=== PATIENT | female | born 1970 | race Caucasian/White ===

== ENCOUNTER → 2020-06-20 | Outpatient (CLI) | payer BC ==
--- NOTE | 2020-06-20 23:14 | MR ---
EXAMINATION TYPE: MR shoulder RT wo con DATE OF EXAM: 06/20/2020 COMPARISON: None HISTORY: Right shoulder pain for 6 months. Multiplanar multiecho imaging of the right shoulder was performed without contrast. There is some thickening and increased signal in the supraspinatus tendon full-thickness tear. There is no retraction. The AC joint is intact. There is no subacromial impingement. The glenoid ray appe ar intact. Biceps tendon is intact. There is a small shoulder joint effusion. There is no evidence of a fracture. The subscapularis tendon is intact. IMPRESSION: Mild shoulder joint effusion. Full-thickness tear of the supraspinatus tendon without any retraction. Mild subdeltoid effusion.
== END | disposition home or self-care (01) ==
LOC: RADMRIMAIN 19:58
PROVIDERS: ATTEND Orthopaedic Surgery
DX: M75.121 Complete rotator cuff tear or rupture of right shoulder, not specified as traumatic (principal); M25.411 Effusion, right shoulder

== ENCOUNTER → 2020-08-02 | Outpatient (CLI) | payer BC ==
[2020-08-02 08:56] LABS: Basophils % (A) 0 %; Eosinophils # (A) 0.1 k/uL (0-0.7); Eosinophils % (A) 2 %; HCT 41.3 % (34.0-46.0); HGB 14.1 gm/dL (11.4-16.0); Lymphocytes # (A) 2.4 k/uL (1.0-4.8); Lymphocytes % (A) 29 %; MCH 30.7 pg (25.0-35.0); MCHC 34.2 g/dL (31.0-37.0); MCV 89.6 fL (80.0-100.0); Mean Platelet Volume 7.8; Monocytes # (A) 0.4 k/uL (0-1.0); Monocytes % (A) 4 %; Neutrophils # (A) 5.1 k/uL (1.3-7.7); Neutrophils % (A) 61 %; Platelet Count 247 k/uL (150-450); RBC 4.61 m/uL (3.80-5.40); RDW 12.3 % (11.5-15.5); WBC 8.3 k/uL (3.8-10.6)
[2020-08-02 09:11] LABS: Potassium 4.2 mmol/L (3.5-5.1)
== END | disposition home or self-care (01) ==
LOC: LABPAT 07:56
PROVIDERS: ATTEND Orthopaedic Surgery
DX: Z01.818 Encounter for other preprocedural examination (principal); M75.41 Impingement syndrome of right shoulder
CPT/HCPCS: 36415; 80051; 85025; 93005

== ENCOUNTER → 2021-01-16 | Outpatient (CLI) | payer BC ==
--- NOTE | 2021-01-16 14:15 | MM ---
Reason for exam: screening (asymptomatic). Last mammogram was performed 1 year and 2 months ago. History: Family history of breast cancer in maternal grandmother. Benign excisional biopsy of the right breast, 2019. Taking hormonal contraceptives for 5 years. Physical Findings: A clinical breast exam by your physician is recommended on an annual basis and results should be correlated with mammographic findings. MG 3D Screening Mammo W/Cad Bilateral CC, MLO, and XCCL view(s) were taken. Prior study comparison: November 28, 2019, mammogram, performed at [facility]. September 09, 2017, mammogram, performed at [facility]. The breast tissue is extremely dense which could obscure a lesion on mammography. Finding: There is stable architectural distortion in the right breast. Previous mammotome biopsy in the right breast x 2. There is a chronic nodularity in the right breast, stable or decreased in size. There is no new dominant lesion. Asymmetric breast tissue left axilla, stable. ASSESSMENT: Benign, BI-RAD 2 RECOMMENDATION: Routine screening mammogram of both breasts in 1 year.
== END | disposition home or self-care (01) ==
LOC: RADMAMWWP 08:27
PROVIDERS: ATTEND Obstetrics & Gynecology
DX: Z12.31 Encounter for screening mammogram for malignant neoplasm of breast (principal); Z80.3 Family history of malignant neoplasm of breast
CPT/HCPCS: 77063; 77067

== ENCOUNTER → 2021-02-14 | Outpatient (CLI) | payer BC ==
[2021-02-14 09:34] LABS: Potassium 4.2 mmol/L (3.5-5.1)
[2021-02-14 09:58] LABS: Basophils % (A) 1 %; Eosinophils # (A) 0.1 k/uL (0-0.7); Eosinophils % (A) 2 %; HGB 13.1 gm/dL (11.4-16.0); Lymphocytes # (A) 2.1 k/uL (1.0-4.8); Lymphocytes % (A) 32 %; MCH 30.5 pg (25.0-35.0); MCHC 33.6 g/dL (31.0-37.0); MCV 90.7 fL (80.0-100.0); Mean Platelet Volume 8.7; Monocytes # (A) 0.4 k/uL (0-1.0); Monocytes % (A) 6 %; Neutrophils # (A) 3.8 k/uL (1.3-7.7); Neutrophils % (A) 56 %; Platelet Count 254 k/uL (150-450); RBC 4.29 m/uL (3.80-5.40); RDW 12.2 % (11.5-15.5); WBC 6.8 k/uL (3.8-10.6)
== END | disposition home or self-care (01) ==
LOC: LABPAT 08:17
PROVIDERS: ATTEND Orthopaedic Surgery
DX: Z01.812 Encounter for preprocedural laboratory examination (principal); M75.41 Impingement syndrome of right shoulder
CPT/HCPCS: 80051; 85025

== ENCOUNTER 2021-02-27 07:44 | Day surgery (SDC) | payer BC ==
[2021-02-26 10:29] VITALS: BMI 23.6
--- NOTE | 2021-02-26 20:33 | HP ---
HISTORY AND PHYSICAL DATE OF SURGERY: 02/27/2021 Annalise Cevallos is a 51-year-old patient seen with progressive right shoulder pain. We discussed options for treatment. The patient elected to proceed with right shoulder arthroscopy. Consent obtained. PAST MEDICAL HISTORY: Noncontributory. PAST SURGICAL HISTORY: Noncontributory. MEDICATIONS: Ibuprofen. ALLERGIES: None. SOCIAL HISTORY: The patient denies tobacco use. PHYSICAL EVALUATION RIGHT SHOULDER: Flexion 130 degrees, abduction is 110 degrees, external rotation is 30 degrees with pain and weakness. There is tenderness along the anterior lateral acromion and rotator cuff insertion site. Impingement is positive at 90 degrees. Cross-body adduction sign is positive. Drop-arm sign is positive. Distal neurovascular exam is intact. Right shoulder radiographs revealed a type 2 acromion, evidence for cystic changes of the tuberosity. MRI right shoulder revealed rotator cuff tendon tear. IMPRESSION: Right shoulder impingement with rotator cuff tear. PLAN: Right shoulder arthroscopy with subacromial decompression, arthroscopic rotator cuff repair and debridement. MMODL / IJN: [id number] /
[~2021-02-27 07:44] MED LIST: DEXAMETHASONE SOD PHOSPHATE 4 MG/ML 1 ML VIAL IV ONE; HYDROmorphone 0.5 MG/0.5 ML SYRINGE IVP PRN; LACTATED RINGERS 1,000 ML IV SCH; LIDOCAINE 1% (10MG/ML) FOR IV START INTRADERMA PRN; MIDAZOLAM 2 MG/2 ML VIAL IV PRN; ONDANSETRON 4 MG/2 ML VIAL IVP ONE; SCOPOLAMINE 1.5MG/72HR PATCH TRANSDERM ONE; fentaNYL (PF) 50 MCG/ML 2 ML AMP IVP PRN
[2021-02-27] MEDS ORDERED: MIDAZOLAM 2 MG/2 ML VIAL IVP ONE ×2 (09:02→09:05)
[2021-02-27] MEDS ORDERED: fentaNYL (PF) 50 MCG/ML 2 ML AMP IVP ONE (09:02)
--- NOTE | 2021-02-27 09:16 | P.ANPRN ---
Procedure Note - Anesthesia - Nerve Block Performed Right Interscalene Single Time Out Performed: Yes ([id number]) Date of Procedure: 02/27/21 Procedure Start Time: :08 Procedure Stop Time: :12 Location of Patient: PreOp Indication: Acute Post-Operative Pain, Requested by Surgeon Specifically requested for management of pain by DrRosas: Clement Burger Sedation Type: Sedate with meaningful contact maintained Preparation: Sterile Prep Position: Supine Catheter: None Needle Types: Pajunk Needle Gauge: 21 Ultrasound used to visualize needle placement: Yes Ultrasound used to observe medication spread: Yes Injectate: 0.5% Ropivacaine (see comment for volume) (25cc) Blood Aspirated: No Pain Paresthesia on Injection Noted: No Resistance on Injection: Normal Image Stored and Saved: Yes Events: Uneventful and Well Tolerated
[2021-02-27] MEDS ORDERED: ROPIVACAINE 5 MG/ML 30 ML VIAL ONE (09:36)
[2021-02-27] MEDS ORDERED: PROPOFOL 10 MG/ML 20 ML VIAL IV ONE (09:36)
[2021-02-27] MEDS ORDERED: LIDOCAINE 1% INJ 10MG/ML (20 ML MDV) ONE (09:36)
[2021-02-27] MEDS ORDERED: fentaNYL (PF) 50 MCG/ML 2 ML AMP ONE (09:36)
[2021-02-27] MEDS ORDERED: SUCCINYLCHOLINE CHLORIDE 100 MG/5 ML SYR IV ONE (09:36)
[2021-02-27] MEDS ORDERED: PHENYLEPHRINE-0.9% NACL SYG 1,000 MCG/10 ML SYRINGE ONE (09:36)
[2021-02-27] MEDS ORDERED: MIDAZOLAM 2 MG/2 ML VIAL ONE (09:36)
[2021-02-27] MEDS ORDERED: LACTATED RINGERS 1,000 ML IV ONE (10:18)
[2021-02-27 11:03] VITALS: TEMP 96.9
--- NOTE | 2021-02-27 11:03 | P.OP ---
Date of Procedure: 02/27/21 Preoperative Diagnosis: Right shoulder impingement Postoperative Diagnosis: 1. Right shoulder rotator cuff tear 2. Right shoulder impingement Procedure(s) Performed: 1. Right shoulder arthroscopic rotator cuff repair 2. Right shoulder arthroscopic subacromial decompression Implants: 14.75 Arthrex swivel lock anchor Anesthesia: GETA, regional (Interscalene block) Surgeon: Clement Burger Belt Glass Sander #1: Robert Fofana Estimated Blood Loss (ml): 8 Pathology: none sent Condition: stable Disposition: PACU Indications for Procedure: 51-year-old patient seen with progressive right shoulder pain. After treatment options were discussed, she elected to proceed with arthroscopy. Operative Findings: see description of procedure Description of Procedure: Patient underwent an interscalene block by department of anesthesia. The patient was then taken to the operative suite. The patient underwent a general anesthetic by the department of anesthesia. The patient was placed into a lateral position and secured. There was appropriate padding of the bony prominence. Right shoulder was then prepped and draped in normal sterile orthopedic fashion. We placed the extremity in 10 pounds of longitudinal traction. A posterior incision was now made for a posterior working portal site. The trocar and cannula were inserted into the glenohumeral joint. Arthroscopy was initiated. Spinal needle was now inserted anteriorly, to ascertain the anterior working portal site. An incision was now made in that area, a trocar was inserted followed by a probe. The labrum was probed and found to be stable. There was no chondromalacia present. The biceps was stable. At this point instruments removed from glenohumeral joint. Utilizing the posterior working portal site, the trocar and cannula were inserted into the subacromial space. Arthroscopy initiated. I made an incision 2 fingerbreadths lateral to the acromion. I introduced my trocar followed by my ArthroCare ablator. I now began ablating thick subacromial bursal tissue, which exposed the undersurface of the anterior acromion. There was diminished subacromial space. There was a very prominent anterior acromion. A motorized bur was introduced and a subacromial decompression was performed. I also excised some osteophytes off the inferior aspect of the distal clavicle. The AC joint was visualized and noted to have some mild/moderate osteoarthritis, not enough toward a Daniele procedure. I now turned my attention to the rotator cuff tendon. There was a 1.5 cm tear along the distal supraspinatus. I debrided the margins getting down to stable tendon tissue. It was freely mobile over the footprint. I abraded the footprint with a motorized bur. I passed 3 everted mattress sutures through good bites of rotator cuff tendon. I punched hole in the footprint area for insertion of an anchor. I passed all 6 limbs of suture through the eyelet of a 4.75 swivel lock anchor. I placed the eyelet into the pre-punch hole. I held it in position while Jc SANCHEZ tensioned all suture limbs and deployed the anchor with good fixation noted. All residual suture limbs were now clipped. We had good compression of the tendon along the entire footprint. Instruments now removed from the portal sites. All portal sites were approximated with nylon suture. Sterile dressings were applied [facility]. Robert SANCHEZ assisted in this case. The patient was awakened, transferred to a bed, and taken to recovery in stable condition.
[2021-02-27] MEDS ORDERED: ONDANSETRON 4 MG/2 ML VIAL ONE (11:14)
[2021-02-27] MEDS ORDERED: ONDANSETRON 4 MG/2 ML VIAL IVP ONE (11:17)
[2021-02-27 11:18] VITALS: RESP 16
[2021-02-27 12:26] VITALS: BP 156/83; PULSE 58
== END 2021-02-27 13:00 | disposition home or self-care (01) ==
LOC: OR 07:44
PROVIDERS: ATTEND Orthopaedic Surgery
DX: M75.101 Unspecified rotator cuff tear or rupture of right shoulder, not specified as traumatic (principal); M25.811 Other specified joint disorders, right shoulder; K21.9 Gastro-esophageal reflux disease without esophagitis; Z79.3 Long term (current) use of hormonal contraceptives; Z79.1 Long term (current) use of non-steroidal anti-inflammatories (NSAID); Z88.8 Allergy status to other drugs, medicaments and biological substances
CPT/HCPCS: 64415; 81025; 76942; 29826; 29827; C1713; J2250; J1100; J2405; J0690; J2001; J3010; J2795; J2370; J0330; J2704

== ENCOUNTER → 2021-11-05 | Outpatient (CLI) | payer BC ==
--- NOTE | 2021-11-05 09:11 | CT ---
EXAMINATION TYPE: CT soft tissue neck wo con DATE OF EXAM: 11/05/2021 COMPARISON: None HISTORY: Enlarged lymph node palpable on RT side of neck x1year CT DLP: 316.[address] of the neck was performed from the skull base through the lung apices. The lack of cont rast does limit evaluation. AIRWAY: The supraglottic, glottic, and subglottic portions of the airway appear patent and free of mass. SALIVARY GLANDS: The submandibular and parotid glands are free of mass or inflammatory process. THYROID GLAND: No nodules or masses seen. LYMPH NODES: Right-sided BB marker corresponds to 6 mm short axis lymph node right internal jugular c vasu. Subcentimeter lymph nodes are also seen within the left internal jugular chain. No adenopathy g reater than 1 cm visualized. LUNG APICES: No nodule or mass is seen. OTHER: Vascular structures are patent. No significant degenerative change of the cervical spine. N o abscess seen. IMPRESSION: Right-sided BB marker corresponds to 6 mm short axis lymph node right internal jugular chain. Subcent imeter lymph nodes are also seen within the left internal jugular chain. No adenopathy greater than 1 cm visualized.
== END | disposition home or self-care (01) ==
LOC: RADCTMAIN 08:22
PROVIDERS: ATTEND Family Medicine
DX: R59.0 Localized enlarged lymph nodes (principal)
CPT/HCPCS: 70490

== ENCOUNTER → 2022-01-17 | Outpatient (CLI) | payer BC ==
--- NOTE | 2022-01-20 16:05 | MM ---
Reason for Exam: Screening (asymptomatic). Last screening mammogram was performed 12 month(s) ago. Patient History: Menarche at age 14. First Full-Term at age 18. Currently using Hormonal Contraceptives, for 5 years. 2019, Benign Excisional Biopsy on the right side. Maternal grandmother had breast cancer. Last menstrual period: 01/06/2022 Risk Values: Shirley 5 year model risk: 0.8%. NCI Lifetime model risk: 6.8%. Prior Study Comparison: 09/09/2017 Screening Mammogram, [facility]. 11/28/2019 Screening Mammogram, [facility]. 01/16/2021 Bilateral Screening Mammogram, [facility]. Tissue Density: The breast tissue is heterogeneously dense. This may lower the sensitivity of mammography. Findings: Analyzed By CAD. Pattern appears symmetrical and stable. No significant interval change is evident. Core markers are within the right breast. No suspicious groups of microcalcifications, spiculated or lobular masses, architectural distortion or other secondary signs of malignancy are mammographically apparent. Overall Assessment: Benign, BI-RAD 2 Management: Screening Mammogram of both breasts in 1 year. A negative mammogram report should not preclude additional follow up of suspicious palpable abnormalities. Patient should continue monthly self breast exam. A clinical breast exam by your physician is recommended on an annual basis and results should be correlated with mammographic findings. Electronically signed and approved by: Andrew Khan D.O. Radiologis
== END | disposition home or self-care (01) ==
LOC: RADMAMWWP 07:30
PROVIDERS: ATTEND Obstetrics & Gynecology
DX: Z12.31 Encounter for screening mammogram for malignant neoplasm of breast (principal); Z80.3 Family history of malignant neoplasm of breast; Z98.890 Other specified postprocedural states
CPT/HCPCS: 77063; 77067

== ENCOUNTER → 2023-01-20 | Outpatient (CLI) | payer BC ==
--- NOTE | 2023-01-21 18:18 | MM ---
Reason for Exam: Screening (asymptomatic). Last screening mammogram was performed 12 month(s) ago. Patient History: Menarche at age 14. First Full-Term at age 18. Patient used Hormonal Contraceptives for 5 years. 2019, Benign Excisional Biopsy on the right side. Maternal grandmother had breast cancer. Last menstrual period: 01/13/2023 Risk Values: Shirley 5 year model risk: 0.8%. NCI Lifetime model risk: 6.7%. Prior Study Comparison: 11/28/2019 Screening Mammogram, [facility]. 01/16/2021 Bilateral Screening Mammogram, [facility]. 01/17/2022 Bilateral MG 3D screening mammo w/cad, [facility]. Tissue Density: The breast tissue is extremely dense which could obscure a lesion on mammography. Findings: Analyzed By CAD. Pattern appears symmetrical and stable. No significant interval change is evident. Core markers are within the right breast. No suspicious groups of microcalcifications, spiculated or lobular masses, architectural distortion or other secondary signs of malignancy are mammographically apparent. Overall Assessment: Negative, BI-RAD 1 Management: Screening Mammogram of both breasts in 1 year. A negative mammogram report should not preclude additional follow up of suspicious palpable abnormalities. Patient should continue monthly self breast exam. A clinical breast exam by your physician is recommended on an annual basis and results should be correlated with mammographic findings. Electronically signed and approved by: Andrew Khan D.O. Radiologis
== END | disposition home or self-care (01) ==
LOC: RADMAMWWP 07:48
PROVIDERS: ATTEND Obstetrics & Gynecology
DX: Z12.31 Encounter for screening mammogram for malignant neoplasm of breast (principal); Z80.3 Family history of malignant neoplasm of breast
CPT/HCPCS: 77063; 77067

== ENCOUNTER 2023-11-15 12:03 | Emergency (ER) | payer BC ==
[2023-11-15] MEDS: diphenhydrAMINE 50 MG/ML 1 ML VIAL IVP STA (12:25)
--- NOTE | 2023-11-15 12:44 | XR ---
EXAMINATION TYPE: XR chest 2V DATE OF EXAM: 11/15/2023 COMPARISON: NONE HISTORY: Chest pain TECHNIQUE: Frontal and lateral views of the chest are obtained. FINDINGS: There is no focal air space opacity. No evidence for pneumothorax. No pleural effusion. The cardiac silhouette size is within normal limits. The osseous structures are grossly intact. IMPRESSION: 1. No acute cardiopulmonary process.
[2023-11-15 12:54] LABS: AST 33 U/L (14-36); African American GFR (CKD) >90 (>60 ml/min/1.73 sqM); Albumin 4.4 g/dL (3.5-5.0); Alkaline Phosphatase 43 U/L (38-126); Anion Gap 11 mmol/L; Blood Urea Nitrogen 8 mg/dL (7-17); Calcium 8.9 mg/dL (8.4-10.2); Carbon Dioxide 15 mmol/L (22-30); Chloride 111 mmol/L (98-107); Glucose 160 mg/dL (74-99); Magnesium 1.9 mg/dL (1.6-2.3); Non-African American GFR(CKD) >90 (>60 ml/min/1.73 sqM); Sodium 137 mmol/L (137-145); Total Bilirubin 1.1 mg/dL (0.2-1.3); Total Protein 7.5 g/dL (6.3-8.2)
--- NOTE | 2023-11-15 12:56 | ED ---
General Adult HPI - General Chief complaint: Anxiety Stated complaint: Medication Rxn Time Seen by Provider: 11/15/23 12:10 Source: patient, EMS, RN notes reviewed, old records reviewed Mode of arrival: EMS Limitations: no limitations - History of Present Illness Initial comments: This is a 53-year-old female who presents to the emergency department com plaining that she has been having heartburn lately. Patient states she took a Nexium [id number] and then started having itchy palms and then she started to breathe fast and having tingling around her mouth hands and feet. Patient states she was having increased epigastric burning but denies shortness of breath just is breathing fast.. Patient has hives around her neck and on her legs. Patient denies ever having taken this medicine before. Patient denies diabetes hypertension high cholesterol smoking. - Related Data Home Medications Medication Instructions Recorded Confirmed Etonogestrel/Ethinyl Estradiol 1 vag ring VAGINAL Q30D 02/26/21 02/27/21 [Nuvaring Vaginal Ring] Previous Rx's Medication Instructions Recorded traMADol HCl [Ultram] 50 mg PO Q6H PRN #28 tab 02/27/21 predniSONE [Deltasone] 40 mg PO DAILY #8 tab 11/15/23 Allergies Allergy/AdvReac Type Severity Reaction Status Date / Time bacitracin Allergy Rash/Hives Verified 11/15/23 12:14 [From Neosporin ([id number])] neomycin Allergy Rash/Hives Verified 11/15/23 12:14 [From Neosporin ([id number])] polymyxin B Allergy Rash/Hives Verified 11/15/23 12:14 [From Neosporin ([id number])] Review of Systems ROS Statement: Those systems with pertinent positive or pertinent negative responses have been documented in the HPI. ROS Other: All systems not noted in ROS Statement are negative. Past Medical History History of Any Multi-Drug Resistant Organisms: None Reported Past Psychological History: No Psychological Hx Reported Smoking Status: Former smoker Past Alcohol Use History: Occasional Past Drug Use History: None Reported General Exam - General Exam Comments Initial Comments: GENERAL: Patient is well-developed and well-nourished. Patient is nontoxic and well- hydrated and is in mild distress. Patient was hyperventilating ENT: Neck is soft and supple. No significant lymphadenopathy is noted. Oropharynx is clear. Moist mucous membranes. Neck has full range of motion without eliciting any pain. EYES: The sclera were anicteric and conjunctiva were pink and moist. Extraocular movements were intact and pupils were equal round and reactive to light. Eyelids were unremarkable. PULMONARY: Patient's respiratory rate was 30 times a minute CARDIOVASCULAR: There is a regular rate and rhythm without any murmurs gallops or rubs. ABDOMEN: Soft and nontender with normal bowel sounds. SKIN: Patient has some hives around her neck and her legs. NEUROLOGIC: Patient is alert and oriented x3. Cranial nerves II through XII are grossly intact. Motor and sensory are also intact. Normal speech, volume and content. Symmetrical smile. MUSCULOSKELETAL: Normal extremities with adequate strength and full range of motion. No lower extremity swelling or edema. No calf tenderness. LYMPHATICS: No significant lymphadenopathy is noted PSYCHIATRIC: Patient was very anxious Limitations: no limitations Course Vital Signs 11/15/23 12:09 Pulse Rate 83 Respiratory 22 Rate Blood Pressure 152/92 O2 Sat by Pulse 99 Oximetry Medical Decision Making - Medical Decision Making EKG is interpreted by myself EKG shows a sinus rhythm at 71 bpm [place] interval is 138 QRS is 88 QT interval is 424 QTc is 447. Patient's EKG shows no ST segment elevation Was pt. sent in by a medical professional or institution (DANIEL Willis, CHIEF MEDICAL TECHNOLOGIST, urgent care, hospital, or senior care...) When possible be specific @ -No Did you speak to anyone other than the patient for history (EMS, parent, family, police, friend...)? What history was obtained from this source @ -No Did you review nursing and triage notes (agree or disagree)? Why? @ -I reviewed and agree with nursing and triage notes Were old charts reviewed (outside hosp., previous admission, EMS record, old EKG, old radiological studies, urgent care reports/EKG's, senior care records)? Report findings @ -No old charts were reviewed Differential Diagnosis? @ -Differential Dyspnea: Allergic reaction, coronary syndrome, arrhythmia, tamponade, asthma, COPD, pulmonary embolism, pneumonia, pneumothorax, pulmonary effusion, anaphylaxis, diabetic ketoacidosis, flailed chest, pulmonary contusion, diaphragmatic rupture, anemia, neuromuscular, this is not meant to be an all-inclusive list. EKG interpreted by me (3pts min.). @ -As above X-rays interpreted by me (1pt min.). @ -Chest x-ray shows no acute normality CT interpreted by me (1pt min.). @ -None done U/S interpreted by me (1pt. min.). @ -None done What testing was considered but not performed or refused? (CT, X-rays, U/S, labs)? Why? @ -None What meds were considered but not given or refused? Why? @ -None Did you discuss the management of the patient with other professionals (professionals i.e. , PA, CHIEF MEDICAL TECHNOLOGIST, lab, RT, psych nurse, psychiatric social worker, manager terminal, teacher, disability liaison officer, correctional casework specialist)? Give summary @ -No Was smoking cessation discussed for >3mins.? @ -No Was critical care preformed (if so, how long)? @ -No Were there social determinants of health that impacted care today? How? (Homelessness, low income, unemployed, alcoholism, drug addiction, transportation, low edu. Level, literacy, decrease access to med. care, usp, rehab)? @ -No Was there de-escalation of care discussed even if they declined (Discuss DNR or withdrawal of care, Hospice)? DNR status @ -No What co-morbidities impacted this encounter? (DM, HTN, Smoking, COPD, CAD, Cancer, CVA, ARF, Chemo, Hep., AIDS, mental health diagnosis, sleep apnea, morbid obesity)? @ -None Was patient admitted / discharged? Hospital course, mention meds given and route, prescriptions, significant lab abnormalities, going to OR and other pertinent info. @ -On arrival patient was hyperventilating. Patient was put on a nonrebreather with no oxygen and given Benadryl and she calmed down quickly. Patient's hives disappeared and her itching on her hands distally. And I went back into reevaluate her after all lab work and x-rays were done and she was having no symptoms and was comfortable going home Undiagnosed new problem with uncertain prognosis? @ -No Drug Therapy requiring intensive monitoring for toxicity (Heparin, Nitro, Insulin, Cardizem)? @ -No Were any procedures done? @ -No Diagnosis/symptom? @ -Allergic reaction Acute, or Chronic, or Acute on Chronic? @ -Acute Uncomplicated (without systemic symptoms) or Complicated (systemic symptoms)? @ -Complicated Side effects of treatment? @ -No Exacerbation, Progression, or Severe Exacerbation? @ -No Poses a threat to life or bodily function? How? (Chest pain, USA, SD, pneumonia, PE, COPD, DKA, ARF, appy, cholecystitis, CVA, Diverticulitis, Homicidal, Suicidal, threat to staff... and all critical care pts) @ -No - Lab Data Result diagrams: 11/15/23 12:24 11/15/23 12:24 Lab Results 11/15/23 11/15/23 11/15/23 Range/Units 12:24 12:24 12:24 WBC 10.0 (3.8-10.6) k/uL RBC 4.68 (3.80-5.40) m/uL Hgb 14.1 (11.4-16.0) gm/dL Hct 42.4 (34.0-46.0) % MCV 90.7 (80.0-100.0) fL MCH 30.0 (25.0-35.0) pg MCHC 33.1 (31.0-37.0) g/dL RDW 13.0 (11.5-15.5) % Plt Count 215 (150-450) k/uL MPV 9.5 Neutrophils % 68 % Lymphocytes % 24 % Monocytes % 3 % Eosinophils % 1 % Basophils % 0 % Neutrophils # 6.9 (1.3-7.7) k/uL Lymphocytes # 2.4 (1.0-4.8) k/uL Monocytes # 0.3 (0-1.0) k/uL Eosinophils # 0.1 (0-0.7) k/uL Basophils # 0.0 (0-0.2) k/uL Manual Slide Review Performed RBC Morphology Normal PT 10.3 (10.0-12.5) sec INR 0.9 (<1.2) APTT 19.5 L (22.0-30.0) sec Sodium 137 (137-145) mmol/L Potassium (3.5-5.1) mmol/L Chloride 111 H (98-107) mmol/L Carbon Dioxide 15 L (22-30) mmol/L Anion Gap 11 mmol/L BUN 8 (7-17) mg/dL Creatinine 0.61 (0.52-1.04) mg/dL Est GFR (CKD-EPI)AfAm >90 (>60 ml/min/1.73 sqM) Est GFR (CKD-EPI)NonAf >90 (>60 ml/min/1.73 sqM) Glucose 160 H (74-99) mg/dL Calcium 8.9 (8.4-10.2) mg/dL Magnesium 1.9 (1.6-2.3) mg/dL Total Bilirubin 1.1 (0.2-1.3) mg/dL AST 33 (14-36) U/L ALT 20 (4-34) U/L Alkaline Phosphatase 43 (38-126) U/L Troponin I (0.000-0.034) ng/mL Total Protein 7.5 (6.3-8.2) g/dL Albumin 4.4 (3.5-5.0) g/dL 11/15/23 Range/Units 12:24 WBC (3.8-10.6) k/uL RBC (3.80-5.40) m/uL Hgb (11.4-16.0) gm/dL Hct (34.0-46.0) % MCV (80.0-100.0) fL MCH (25.0-35.0) pg MCHC (31.0-37.0) g/dL RDW (11.5-15.5) % Plt Count (150-450) k/uL MPV Neutrophils % % Lymphocytes % % Monocytes % % Eosinophils % % Basophils % % Neutrophils # (1.3-7.7) k/uL Lymphocytes # (1.0-4.8) k/uL Monocytes # (0-1.0) k/uL Eosinophils # (0-0.7) k/uL Basophils # (0-0.2) k/uL Manual Slide Review RBC Morphology PT (10.0-12.5) sec INR (<1.2) APTT (22.0-30.0) sec Sodium (137-145) mmol/L Potassium (3.5-5.1) mmol/L Chloride (98-107) mmol/L Carbon Dioxide (22-30) mmol/L Anion Gap mmol/L BUN (7-17) mg/dL Creatinine (0.52-1.04) mg/dL Est GFR (CKD-EPI)AfAm (>60 ml/min/1.73 sqM) Est GFR (CKD-EPI)NonAf (>60 ml/min/1.73 sqM) Glucose (74-99) mg/dL Calcium (8.4-10.2) mg/dL Magnesium (1.6-2.3) mg/dL Total Bilirubin (0.2-1.3) mg/dL AST (14-36) U/L ALT (4-34) U/L Alkaline Phosphatase (38-126) U/L Troponin I <0.012 (0.000-0.034) ng/mL Total Protein (6.3-8.2) g/dL Albumin (3.5-5.0) g/dL Disposition Clinical Impression: Hyperventilation, Allergic reaction Disposition: HOME SELF-CARE Instructions (If sedation given, give patient instructions): Generalized Anxiety Disorder (ED), General Allergic Reaction (ED) Prescriptions: predniSONE [Deltasone] 40 mg PO DAILY #8 tab Is patient prescribed a controlled substance at d/c from ED?: No Referrals: Gino Huertas DO [Primary Care Provider] - 1-2 days Time of Disposition: 14:48
[2023-11-15 13:03] LABS: ALT 20 U/L (4-34)
[2023-11-15 13:22] LABS: INR 0.9 (<1.2); Prothrombin Time 10.3 sec (10.0-12.5)
[2023-11-15 13:25] LABS: Partial Thromboplastin Time 19.5 sec (22.0-30.0)
[2023-11-15 13:27] LABS: Basophils % (A) 0 %; Eosinophils # (A) 0.1 k/uL (0-0.7); Eosinophils % (A) 1 %; HCT 42.4 % (34.0-46.0); HGB 14.1 gm/dL (11.4-16.0); Lymphocytes # (A) 2.4 k/uL (1.0-4.8); Lymphocytes % (A) 24 %; MCHC 33.1 g/dL (31.0-37.0); MCV 90.7 fL (80.0-100.0); Mean Platelet Volume 9.5; Monocytes # (A) 0.3 k/uL (0-1.0); Monocytes % (A) 3 %; Neutrophils # (A) 6.9 k/uL (1.3-7.7); Neutrophils % (A) 68 %; Platelet Count 215 k/uL (150-450); RBC 4.68 m/uL (3.80-5.40)
[2023-11-15 13:43] LABS: RBC Morphology Normal
[2023-11-15 15:29] VITALS: BP 115/75; PULSE 70; RESP 16
== END 2023-11-15 15:39 | disposition home or self-care (01) ==
LOC: EC 12:03
DX: R06.4 Hyperventilation (principal); T47.1X5A Adverse effect of other antacids and anti-gastric-secretion drugs, initial encounter; Z87.891 Personal history of nicotine dependence; Z88.1 Allergy status to other antibiotic agents; Z88.8 Allergy status to other drugs, medicaments and biological substances
CPT/HCPCS: 36415; 93005; 80053; 83735; 84484; 85025; 85610; 85730; 71046; 99284; 96374; J1200

== ENCOUNTER → 2024-01-28 | Outpatient (CLI) | payer BC ==
--- NOTE | 2024-01-31 13:49 | MM ---
Reason for Exam: Screening (asymptomatic). Last screening mammogram was performed 12 month(s) ago. Patient History: Menarche at age 14. First Full-Term at age 18. Patient used Hormonal Contraceptives for 5 years. 2019, Benign Excisional Biopsy on the right side. Maternal grandmother had breast cancer. Risk Values: Shirley 5 year model risk: 0.9%. NCI Lifetime model risk: 6.5%. Prior Study Comparison: 01/16/2021 Bilateral Screening Mammogram, [facility]. 01/17/2022 Bilateral MG 3D screening mammo w/cad, [facility]. 01/20/2023 Bilateral MG 3D screening mammo w/cad, [facility]. Tissue Density: The breasts are extremely dense, which lowers the sensitivity of mammography. Findings: Analyzed By CAD. The pattern is symmetrical. 2 core markers are within the right breast. No suspicious groups of microcalcifications, spiculated or lobular masses, architectural distortion or other secondary signs of malignancy are mammographically apparent. Overall Assessment: Benign, BI-RAD 2 Management: Screening Mammogram of both breasts in 1 year. A negative mammogram report should not preclude additional follow up of suspicious palpable abnormalities. Patient should continue monthly self breast exam. A clinical breast exam by your physician is recommended on an annual basis and results should be correlated with mammographic findings. Note on Shirley scores and lifetime risk: 1. A Shirley score greater than 3% is considered moderate risk. If this is the case, consider specialist referral to assess eligibility for a risk reducing agent. 2. If overall lifetime risk for the development of breast cancer is 20% or higher, the patient may qualify for future screening with alternating mammogram and breast MRI. [facility], , 01/31/2024 1:46 PM. Electronically signed and approved by: Andrew Khan D.O. Radiologis
== END | disposition home or self-care (01) ==
LOC: RADMAMWWP 07:36
PROVIDERS: ATTEND Obstetrics & Gynecology
DX: Z12.31 Encounter for screening mammogram for malignant neoplasm of breast
CPT/HCPCS: 77063; 77067